=== PATIENT | male | born 1945 | race Caucasian/White ===

== ENCOUNTER → 2017-04-26 | Outpatient (CLI) | payer OTHER | LOC: CT 08:00 | DX: R91.8 Other nonspecific abnormal finding of lung field (principal); R91.1 Solitary pulmonary nodule | CPT/HCPCS: 71250 ==

== ENCOUNTER → 2021-01-28 | Outpatient (CLI) | payer OTHER ==
[~2021-01-28] MED LIST: FLORASTOR250 MG PO
[2021-01-28 11:30] LABS: HEMOGLOBIN 16.9 gm/dl (14.0-17.5); RED BLOOD COUNT 6.05 M/UL (4.20-5.50); WHITE BLOOD COUNT 11.3 K/UL (4.5-11.0)
[2021-01-30 11:15] LABS: CHOLESTEROL, TOTAL 171 mg/dL (100-199); HDL SIZE 9.3 nm (>=9.2); HDL-C 57 mg/dL (>39); HDL-P (TOTAL) 36.1 umol/L (>=30.5); LARGE HDL-P 6.3 umol/L (>=4.8); LDL SIZE 20.9 nm (>20.5); LDL SIZE 20.9 nm (>=20.8); LDL-C 87 mg/dL (0-99); LDL-P 1099 nmol/L (<1000); LP-IR SCORE 55 (<=45); SMALL LDL-P 537 nmol/L (<=527); TRIGLYCERIDES 159 mg/dL (0-149); VLDL SIZE 49.6 nm (<=46.6)
== END ==
LOC: RAD 10:59
PROVIDERS: Emergency Medicine
DX: R06.02 Shortness of breath (principal); R53.83 Other fatigue; R09.02 Hypoxemia; E66.2 Morbid (severe) obesity with alveolar hypoventilation; G47.33 Obstructive sleep apnea (adult) (pediatric); I51.7 Cardiomegaly; Z00.01 Encounter for general adult medical examination with abnormal findings
CPT/HCPCS: 36415; 71046; 80053; 80061; 83704; 83880; 84443; 85025; 85379

== ENCOUNTER → 2021-02-04 | Outpatient (CLI) | payer OTHER, SELFPAY | LOC: NM 09:00 | DX: R06.02 Shortness of breath (principal); R09.89 Other specified symptoms and signs involving the circulatory and respiratory systems | CPT/HCPCS: 71046; 78580; A9540 ==

== ENCOUNTER 2021-02-08 13:44 | Emergency (ER) | payer OTHER, SELFPAY ==
[2021-02-08 15:10] LABS: HEMOGLOBIN 15.3 gm/dl (14.0-17.5); RED BLOOD COUNT 5.46 M/UL (4.20-5.50); WHITE BLOOD COUNT 10.6 K/UL (4.5-11.0)
[2021-02-08 15:35] LABS: BUN/CREATININE RATIO 11 (0-10)
[2021-02-08] MEDS ORDERED: FLORASTOR250 MG PO (15:51)
== END 2021-02-08 16:26 | disposition home or self-care (01) ==
LOC: ER1 13:44
PROVIDERS: Emergency Medicine
DX: R19.7 Diarrhea, unspecified (principal); I11.0 Hypertensive heart disease with heart failure; I50.9 Heart failure, unspecified; J44.9 Chronic obstructive pulmonary disease, unspecified; Z20.822 Contact with and (suspected) exposure to COVID-19; I25.10 Atherosclerotic heart disease of native coronary artery without angina pectoris; Z90.89 Acquired absence of other organs
CPT/HCPCS: 71045; 80053; 82550; 82553; 83690; 83735; 83874; 83880; 84100; 84484; 85025; 85610; 85730; 93005; 96374; 99285; J1940; J7030; U0002

== ENCOUNTER → 2021-02-19 | Outpatient (CLI) | payer OTHER ==
[2021-02-19 10:02] LABS: BUN/CREATININE RATIO 15 (0-10)
[2021-02-19 11:41] LABS: ADENOVIRUS F 40/41 Not Detected (Negative); ASTROVIRUS Not Detected (Negative); CAMPYLOBACTER Not Detected (Negative); CRYPTOSPORIDIUM Not Detected (Negative); E.COLI 0157 Not Detected (Negative); ENTAMOEBA HISTOLYTICA Not Detected (Negative); ENTEROAGGREGATIVE E.COLI (EAEC Not Detected (Negative); ENTEROPATHOGENIC E.COLI (EPEC) Not Detected (Negative); ENTEROTOXIGENIC E.COLI (ETEC) Not Detected (Negative); GIARDIA LAMBLIA Not Detected (Negative); NOROVIRUS GI/GII Not Detected (Negative); PLESIOMONAS SHIGELLOIDES Not Detected (Negative); ROTOVIRUS A Not Detected (Negative); SALMONELLA Not Detected (Negative); SAPOVIRUS Not Detected (Negative); SHIG/ENTEROINVAS.ECOLI (EIEC) Not Detected (Negative); SHIGA-LIK TOX.PRO.E.COLI (STEC Not Detected (Negative); VIBRIO Not Detected (Negative); VIBRIO CHOLERAE Not Detected (Negative); YERSINIA ENTEROCOLITICA Not Detected (Negative)
[2021-02-19 17:22] LABS: CLOSTRIDIUM DIFFICILE TOX A/B DETECTED (Negative)
== END ==
LOC: LAB 08:55
PROVIDERS: Emergency Medicine
DX: A09 Infectious gastroenteritis and colitis, unspecified (principal); R10.84 Generalized abdominal pain; E78.2 Mixed hyperlipidemia; I10 Essential (primary) hypertension; K59.1 Functional diarrhea
CPT/HCPCS: 36415; 80048; 87507

== ENCOUNTER → 2021-05-22 | Outpatient (CLI) | payer OTHER ==
[2021-05-22 13:36] LABS: BUN/CREATININE RATIO 16 (0-10)
== END ==
LOC: LAB 11:29
PROVIDERS: Internal Medicine Cardiovascular Disease
DX: I10 Essential (primary) hypertension (principal); I25.119 Atherosclerotic heart disease of native coronary artery with unspecified angina pectoris; E78.5 Hyperlipidemia, unspecified; R55 Syncope and collapse
CPT/HCPCS: 36415; 80053; 80061; 84439; 84443; 84481

== ENCOUNTER → 2022-01-19 | Outpatient (CLI) | payer OTHER ==
[2022-01-19 16:34] LABS: HEMOGLOBIN 15.5 gm/dl (14.0-17.5); RED BLOOD COUNT 5.67 M/UL (4.20-5.50); WHITE BLOOD COUNT 6.6 K/UL (4.5-11.0)
== END ==
LOC: LAB 15:44
PROVIDERS: Emergency Medicine
DX: I10 Essential (primary) hypertension (principal); K21.9 Gastro-esophageal reflux disease without esophagitis; E79.0 Hyperuricemia without signs of inflammatory arthritis and tophaceous disease; E78.2 Mixed hyperlipidemia; R53.83 Other fatigue; G47.39 Other sleep apnea; E55.9 Vitamin D deficiency, unspecified
CPT/HCPCS: 36415; 80053; 80061; 82306; 83540; 83704; 84443; 84550; 85025

== ENCOUNTER → 2022-07-16 | Outpatient (CLI) | payer OTHER ==
[2022-07-16 11:46] LABS: HEMOGLOBIN 15.7 gm/dl (14.0-17.5); RED BLOOD COUNT 5.68 M/UL (4.20-5.50); WHITE BLOOD COUNT 6.6 K/UL (4.5-11.0)
[2022-07-16 12:24] LABS: BUN/CREATININE RATIO 17 (0-10)
[2022-07-18 13:08] LABS: CHOLESTEROL, TOTAL 153 mg/dL (100-199); HDL SIZE 8.8 nm (>=9.2); HDL-C 40 mg/dL (>39); HDL-P (TOTAL) 27.8 umol/L (>=30.5); LARGE HDL-P 2.8 umol/L (>=4.8); LARGE VLDL-P 5.8 nmol/L (<=2.7); LDL-C 83 mg/dL (0-99); LDL-P 1037 nmol/L (<1000); LP-IR SCORE 66 (<=45); SMALL LDL-P 433 nmol/L (<=527); TRIGLYCERIDES 173 mg/dL (0-149); VLDL SIZE 48.5 nm (<=46.6)
== END ==
LOC: LAB 10:55
PROVIDERS: Emergency Medicine
DX: I10 Essential (primary) hypertension (principal); E79.0 Hyperuricemia without signs of inflammatory arthritis and tophaceous disease; R09.02 Hypoxemia; R60.0 Localized edema; E78.2 Mixed hyperlipidemia; G47.33 Obstructive sleep apnea (adult) (pediatric); I95.1 Orthostatic hypotension; E55.9 Vitamin D deficiency, unspecified
CPT/HCPCS: 36415; 80053; 80061; 82306; 83704; 84443; 84550; 85025